=== PATIENT | female | born 1945 | race Two or more races ===

== ENCOUNTER 2024-02-05 04:53 | Day surgery (SDC) | payer OTHER ==
[~2024-02-05 04:53] MED LIST: ALDACTONE25 MG; BENICAR; ELIQUIS; NORVASC10 MG
[2024-02-05] MEDS ORDERED: LIDOCAINE HCL 1%/EPINEPHRINE 20ML VIAL IJ ONE (08:30)
[2024-02-05] MEDS ORDERED: BUPIVACAINE HCL 30 ML VIAL IJ ONE (08:30)
[2024-02-05] MEDS ORDERED: CEFAZOLIN SODIUM 1,000 MG VIAL IV ONE (08:30)
[2024-02-17] MEDS ORDERED: CRESTOR 20MG (11:31)
[2024-02-17] MEDS ORDERED: ZETIA10 MG (11:32)
== END 2024-02-05 11:40 | disposition home or self-care (01) ==
LOC: CIR.AMB 04:53 → ADM 10:15 → CIR.AMB 10:15
PROVIDERS: ATTEND Colon & Rectal Surgery
DX: R15.9 Full incontinence of feces (principal)
CPT/HCPCS: 64581; 95972; C1778

== ENCOUNTER 2024-02-19 06:00 | Day surgery (SDC) | payer OTHER ==
[~2024-02-19 06:00] MED LIST changes: +CRESTOR 20MG; +ZETIA10 MG
[2024-02-19] MEDS ORDERED: CEFAZOLIN SODIUM 1,000 MG VIAL IV ONE (11:30)
[2024-02-19] MEDS ORDERED: LIDOCAINE HCL 1%/EPINEPHRINE 20ML VIAL IJ ONE (11:30)
[2024-02-19] MEDS ORDERED: BUPIVACAINE HCL 30 ML VIAL IJ ONE (11:30)
== END 2024-02-19 13:40 | disposition home or self-care (01) ==
LOC: CIR.AMB 06:00
PROVIDERS: ATTEND Colon & Rectal Surgery
DX: R15.9 Full incontinence of feces (principal); I10 Essential (primary) hypertension; Z95.0 Presence of cardiac pacemaker
CPT/HCPCS: 64590; 95972; C1767

== ENCOUNTER 2024-03-29 16:44 | Emergency (ER) | payer OTHER ==
[~2024-03-29] VITALS: Ht 160 cm; Wt 49.9 kg
[2024-03-29] MEDS ORDERED: ELIQUIS5 MG PO (17:01)
[2024-03-29] MEDS ORDERED: OLMESARTAN MEDO40 MG PO (17:02)
[2024-03-29] MEDS ORDERED: AMLODIPINE BESY10 MG PO (17:02)
[2024-03-29] MEDS ORDERED: ROSUVASTATIN CA20 MG PO (17:02)
[2024-03-29] MEDS ORDERED: 0.9 % SODIUM CHLORIDE 500 ML IV STA (17:44)
[2024-03-29 18:56] LABS: HEMATOCRIT 45.5 % (36.0-45.00); HEMOGLOBIN 15.9 g/dL (12.0-15.00); MEAN CELL VOLUME 90.7 fL (80.00-100.00); MEAN CORPUSCULAR HEMOGLOBIN 31.7 pg (27.00-32.0); PLATELET COUNT 193 K/uL (150-450); RED BLOOD COUNT 5.02 M/uL (4.00-6.00); RED CELL DISTRIBUTION WIDTH 12.7 % (11.5-14.5)
[2024-03-29 19:14] LABS: INR 1.09; PARTIAL THROMBOPLASTIN TIME 27.7 SECONDS (22.0-34.0); PROTHROMBIN TIME 11.8 SECONDS (9.0-11.5)
[2024-03-29 19:19] LABS: ALBUMIN 3.6 gm/dL (3.4-5.0); BILIRUBIN TOTAL 0.9 mg/dL (0.3-1.2); CALCIUM 9.4 mg/dL (8.5-10.1); CREATININE SERUM 0.67 mg/dL (0.55-1.02); GFR 85.35; GLOBULINA 4.2 G/DL (2.4-3.5); TOTAL PROTEIN 7.8 gm/dL (6.4-8.2)
[2024-03-29 19:26] LABS: POTASSIUM 2.95 mEq/L (3.5-5.1)
[2024-03-29] MEDS ORDERED: POTASSIUM CHLORIDE 10 MEQ CAPSULE PO ONE (22:15)
[2024-03-29] MEDS ORDERED: FAMOTIDINE/PF 20 MG/2 ML VIAL IV ONE (22:15)
[2024-03-29] MEDS ORDERED: LevETIRAcetam 500 MG/5 ML VIAL IV ONE ×2 (22:15→22:30)
[2024-03-29] MEDS ORDERED: METOCLOPRAMIDE HCL 5 MG/ML VIAL IV ONE (22:15)
[2024-03-29] MEDS ORDERED: ACETAMINOPHEN 500 MG GEL..CAP PO ONE ×2 (22:15→22:30)
[2024-03-29] MEDS ORDERED: FAMOTIDINE/PF 20 MG/2 ML VIAL ONE (22:30)
[2024-03-29] MEDS ORDERED: METOCLOPRAMIDE HCL 5 MG/ML VIAL ONE (22:30)
== END 2024-03-30 02:51 | disposition designated cancer center or children's hospital (05) ==
LOC: ER 16:46
PROVIDERS: Emergency Medicine
DX: I60.9 Nontraumatic subarachnoid hemorrhage, unspecified (principal); R42 Dizziness and giddiness; R53.1 Weakness; Z20.822 Contact with and (suspected) exposure to COVID-19
CPT/HCPCS: 36415; 51702; 70450; 71045; 93005; 96365; 96366; 99285; J2765; J3490 ×2; J7042

== ENCOUNTER 2024-08-04 13:50 | Emergency (ER) | payer OTHER ==
[~2024-08-04] VITALS: Ht 162.6 cm; Wt 50.3 kg
[~2024-08-04 13:50] MED LIST changes: +AMLODIPINE BESY10 MG PO; +ELIQUIS5 MG PO; +OLMESARTAN MEDO40 MG PO; +ROSUVASTATIN CA20 MG PO
[2024-08-04] MEDS ORDERED: CARVEDILOL3.125 M1 PO (14:39)
[2024-08-04] MEDS ORDERED: NIFEDIPINE ER60 M1 PO (14:40)
[2024-08-04 16:24] LABS: BASO % 0.3 % (0.1-1.2); EOS # 0.04 (0.04-0.54); EOS % 0.3 % (0.7-7.0); HEMATOCRIT 36.8 % (34.1-44.9); HEMOGLOBIN 12.5 g/dL (11.2-15.7); LYMPH # 2.03 (1.18-3.74); LYMPH % 13.7 % (19.3-53.1); MEAN CORPUSCULAR HEMOGLOBIN 28.8 pg (25.6-32.2); MONO # 1.64 (0.24-0.82); MONO % 11.1 % (4.7-12.5); NEUT # 11.01 (1.56-6.13); NEUT % 74.3 % (34.0-71.1); PLATELET COUNT 230 K/uL (163-369); RED BLOOD COUNT 4.34 M/uL (3.93-5.22); RED CELL DISTRIBUTION WIDTH 12.8 % (11.6-14.4)
[2024-08-04 16:53] LABS: ALBUMIN 3.4 gm/dL (3.4-5.0); BILIRUBIN TOTAL 0.68 mg/dL (0.3-1.2); CALCIUM 9.3 mg/dL (8.5-10.1); CREATININE SERUM 0.69 mg/dL (0.55-1.02); GFR 82.5; POTASSIUM 3.86 mEq/L (3.5-5.1); TOTAL PROTEIN 7.3 gm/dL (6.4-8.2)
[2024-08-04 17:03] LABS: BILIRUBIN,CONJUGATED 0.15 mg/dL (0.0-0.2); BILIRUBIN,UNCONJUGATED 0.53 mg/dL (0.0-0.6)
[2024-08-04 17:22] LABS: PH,URINE 5.5 (5.0-8.0); URINE APPEARANCE Clear; URINE BILIRRUBIN Negative (NEGATIVE); URINE BLOOD Trace; URINE COLOR Yellow; URINE GLUCOSE Negative (NEGATIVE); URINE KETONE Negative (NEGATIVE); URINE LEUKOCYTE Trace; URINE NITRATE Negative; URINE PROTEIN 30 (NEGATIVE); URINE UROBILINOGEN 0.2 E.U./dl
[2024-08-04 17:26] LABS: URINE BACTERIA 357.3 uL (0.0-1933); URINE EPITHELIAL CELLS 3.1 uL (0.0-38.8); URINE RBC 9.5 uL (0.0-20.8); URINE WBC 43.4 uL (0.0-23.2)
[2024-08-04 17:37] LABS: URINE CAST 0.29 uL (0.0-1.40)
[2024-08-04 17:38] LABS: INFLUENZA A AG NEGATIVE (NEGATIVE); INFLUENZA B AG NEGATIVE (NEGATIVE)
== END 2024-08-04 19:06 | disposition home or self-care (01) ==
LOC: ER 13:50
PROVIDERS: General Practice
DX: R55 Syncope and collapse (principal); R42 Dizziness and giddiness; I10 Essential (primary) hypertension